=== PATIENT | female | born 1970 | race Caucasian/White ===

== ENCOUNTER 2016-04-13 08:00 | Inpatient (IN) | payer MEDICARE ==
[~2016-04-13] VITALS: Ht 160 cm; Wt 84.9 kg
[2016-04-13] VITALS (8 sets, daily range): BP systolic 105–146; BP diastolic 59–89; PULSE 50–73; RESP 16–24; TEMP 96.7–97.4; O2SAT 95–100
[~2016-04-13 08:00] MED LIST: BACT800T5 PO; IBUP200C PO; PYRI200T4 PO; Z.0.OXYGEN INH
--- NOTE | 2016-04-13 08:28 | PD ---
HPI Chief Complaint: Abdominal Pain Time Seen by Provider: 08:20 Travel History International Travel<30 days: No Contact w/Intl Traveler<30days: No Traveled to known affect area: No History of Present Illness HPI 45-year-old female came to the emergency room with history of severe epigastric and right upper quadrant pain that started this morning at 3 AM. She has been nauseous. She was at [facility] this morning but says that it took a long time so she left and came here. She has history of gallbladder stones and she thinks that's what it is this time. She looks very uncomfortable. No history of fever or chills. PFSH Past Medical History Narrative Medical List of her past medical history as reviewed from the nursing note. Cancer: Yes (PT STATES SHE HAD " BENIGN CANCER CELLS UTERUS" REFUSED CHEMO & RAD) Cardiovascular Problems: No Diabetes: No Endocrine: No Genitourinary: Yes (URINE INCONT) Hepatitis: No Hiatal Hernia: No Immune Disorder: No Musculoskeletal: Yes (LOW BACK ARTHRITIS AND SCOLIOSIS; SCIATIC NERVE LEFT PAIN ) Neurologic: Yes (HISTORY OF SEIZURES ) Psychiatric: Yes (ANXIETY, BIPOLAR, AND DEPRESSION) Respiratory: Yes (COPD) Thyroid Disease: No ?: Not Past Surgical History Abdominal Surgery: Yes (APPENDECTOMY AGE 22) AICD: No Body Medical Devices: NONE Cardiac Surgery: No Ear Surgery: No Endocrine Surgery: No Eye Surgery: No Genitourinary Surgery: No Gynecologic Surgery: Yes (PARTIAL HYSTERECTOMY 2009) Hysterectomy: Yes Joint Replacement: No Oral Surgery: No Pacemaker: No Thoracic Surgery: No Social History Tobacco Use: Yes Substance Use: Yes (ALCOHOL TEENAGER) Allergies-Medications (Allergen,Severity, Reaction): Coded Allergies: Apple (Verified Allergy, Intermediate, BLISTERS, 04/13/16) [place] (Verified Allergy, Intermediate, HIVES, 04/13/16) PT STATES SHE IS ALLERGIC TO ALL FRUIT Penicillin (Verified Allergy, Intermediate, SWELLING; HIVES, 04/13/16) Comments List of allergies reviewed from the nursing note. Reported Meds & Prescriptions Reported Meds & Active Scripts Active Narrative Medication List of her home medications reviewed from the nursing note. Review of Systems Except as stated in HPI: all other systems reviewed are Neg Physical Exam Narrative GENERAL: Awake, alert, moderate to significant distress SKIN: Warm and dry. HEAD: Atraumatic. Normocephalic. EYES: Pupils equal and round. No scleral icterus. No injection or drainage. ENT: No nasal bleeding or discharge. Mucous membranes pink and moist. NECK: Trachea midline. No JVD. CARDIOVASCULAR: Regular rate and rhythm. No murmur appreciated. RESPIRATORY: No accessory muscle use. Clear to auscultation. Breath sounds equal bilaterally. GASTROINTESTINAL: Abdomen soft, right upper quadrant tenderness, nondistended. Hepatic and splenic margins not palpable. MUSCULOSKELETAL: No obvious deformities. No clubbing. No cyanosis. No edema. NEUROLOGICAL: Awake and alert. No obvious cranial nerve deficits. Motor grossly within normal limits. Normal speech. PSYCHIATRIC: Appropriate mood and affect; insight and judgment normal. Data Data Last Documented VS Vital Signs Date Time Temp Pulse Resp B/P Pulse Ox O2 Delivery O2 Flow Rate FiO2 04/13/16 09:00 59 20 129/77 100 Room Air 04/13/16 08:03 97.4 Orders Complete Blood Count With Diff (04/13/16 08:30) Comprehensive Metabolic Panel (04/13/16 08:30) Lipase (04/13/16 08:30) Prothrombin Time / Inr (Pt) (04/13/16 08:30) Urinalysis - C+S If Indicated (04/13/16 08:30) Iv Access Insert/Monitor (04/13/16 08:30) Ecg Monitoring (04/13/16 08:30) Oximetry (04/13/16 08:30) Morphine Inj (Morphine Inj) (04/13/16 08:30) Ondansetron Inj (Zofran Inj) (04/13/16 08:30) Sodium Chloride 0.9% Flush (Ns Flush) (04/13/16 08:30) Ed Poc Ultrasound (04/13/16 08:30) Ondansetron Inj (Zofran Inj) (04/13/16 08:33) Us Abdomen Gallbladder (04/13/16 ) Morphine Inj (Morphine Inj) (04/13/16 10:30) Sodium Chlor 0.9% 1000 Ml Inj (Ns 1000 M (04/13/16 10:30) Aztreonam Inj (Azactam Inj) (04/13/16 10:30) Diet Npo (04/13/16 Lunch) Vital Signs (Adult) JURGEN.Q4H (04/13/16 10:32) Sodium Chlor 0.9% 1000 Ml Inj (Ns 1000 M (04/13/16 11:00) Acetaminophen (Tylenol) (04/13/16 10:45) Ciprofloxacin 400 Mg Premix (Cipro 400 M (04/13/16 12:00) Metronidazole 500 Mg Inj (Flagyl 500 Mg (04/13/16 13:00) Consult General Surgery (04/13/16 ) Consult Clara Nfs (04/13/16 ) Admit Order (Ed Use Only) (04/13/16 10:42) Labs Laboratory Tests Test 04/13/16 08:30 White Blood Count 10.0 TH/MM3 Red Blood Count 4.48 MIL/MM3 Hemoglobin 13.6 GM/DL Hematocrit 39.7 % Mean Corpuscular Volume 88.7 FL Mean Corpuscular Hemoglobin 30.3 PG Mean Corpuscular Hemoglobin 34.2 % Concent Red Cell Distribution Width 14.8 % Platelet Count 206 TH/MM3 Mean Platelet Volume 11.0 FL Neutrophils (%) (Auto) 72.1 % Lymphocytes (%) (Auto) 22.0 % Monocytes (%) (Auto) 4.4 % Eosinophils (%) (Auto) 1.1 % Basophils (%) (Auto) 0.4 % Neutrophils # (Auto) 7.2 TH/MM3 Lymphocytes # (Auto) 2.2 TH/MM3 Monocytes # (Auto) 0.4 TH/MM3 Eosinophils # (Auto) 0.1 TH/MM3 Basophils # (Auto) 0.0 TH/MM3 CBC Comment DIFF FINAL Differential Comment Prothrombin Time 10.7 SEC Prothromb Time International 1.0 RATIO Ratio Urine Color YELLOW Urine Turbidity CLEAR Urine pH 8.0 Urine Specific [place] 1.020 Urine Protein TRACE mg/dL Urine Glucose (UA) NEG mg/dL Urine Ketones NEG mg/dL Urine Occult Blood NEG Urine Nitrite NEG Urine Bilirubin NEG Urine Urobilinogen LESS THAN 2.0 MG/DL Urine Leukocyte Esterase SMALL Urine RBC 2 /hpf Urine WBC 2 /hpf Urine Squamous Epithelial 4 /hpf Cells Urine Bacteria RARE /hpf Urine Mucus FEW /lpf Microscopic Urinalysis Comment CULT NOT INDICATED Sodium Level 138 MEQ/L Potassium Level 4.0 MEQ/L Chloride Level 104 MEQ/L Carbon Dioxide Level 27.8 MEQ/L Anion Gap 6 MEQ/L Blood Urea Nitrogen 18 MG/DL Creatinine 0.86 MG/DL Estimat Glomerular Filtration 72 ML/MIN Rate Random Glucose 125 MG/DL Calcium Level 8.8 MG/DL Total Bilirubin 0.4 MG/DL Aspartate Amino Transf 9 U/L (AST/SGOT) Alanine Aminotransferase 18 U/L (ALT/SGPT) Alkaline Phosphatase 74 U/L Total Protein 7.7 GM/DL Albumin 3.8 GM/DL Lipase 88 U/L MDM Medical Decision Making Medical Screen Exam Complete: Yes Emergency Medical Condition: Yes Medical Record Reviewed: Yes Differential Diagnosis Acute cholecystitis, acute pancreatitis, biliary colic Narrative Course 10:45 AM blood test results were within normal limit. Based on my bedside ultrasound I ordered an official ultrasound which shows acute cholelithiasis with ultrasound Burgos's sign positive. I discussed the case with Dr. Sherman from general surgery who wants the patient to be admitted medically and he will consult. Patient is kept nothing by mouth and getting IV fluid. I ordered a dose of antibiotic for the acute cholecystitis. After let the patient know about the diagnosis and the admission and she is happy with the plan. I have given her adequate pain management. Procedures Procedure Narrative Emergency department right upper quadrant ultrasound was performed with patient consent. Curvilinear probe was used in the transverse and sagittal views within the right upper quadrant revealing gallbladder without obvious wall thickening, cholecystic fluid, but multiple gallstones and ultrasound Burgos's sign positive EKG Prior to Arrival: No Physician Communication Physician Communication Dr. Sherman Diagnosis Primary Impression: Acute cholecystitis Additional Impression: Cholelithiasis Qualified Code: K80.00 - Calculus of gallbladder with acute cholecystitis without obstruction Admitting Information Admitting Physician Requests: Admit Scripts Hydrocodone-Acetaminophen ([place])5-325 mg Tab1 Tab PO Q6H PRN (PAIN) #28 TAB Ref 0 Prov:Israel Sherman MD 04/14/16 Hydrocodone-Acetaminophen ([place])5-325 mg Tab1 Tab PO Q6H PRN (PAIN) #14 TAB Ref 0 Prov:Ger Tovar MD 04/14/16 Angeles Mcdonnell MD Apr 13, 2016 08:28
[2016-04-13] MEDS ORDERED: SODIUM CHLORIDE 0.9% FLUSH 5 ML FLUSH IVF PRN (08:30)
[2016-04-13] MEDS ORDERED: ONDANSETRON HCL 4 MG/2 ML VIAL IVP ONE (08:30)
[2016-04-13] MEDS ORDERED: MORPHINE SULFATE 4 MG/ML INJ IV PUSH ONE ×2 (08:30→10:30)
[2016-04-13] MEDS ORDERED: ONDANSETRON HCL 4 MG/2 ML VIAL ONE (08:33)
[2016-04-13 08:53] LABS: AUTOMATED NEUTROPHIL # 7.2 TH/MM3 (1.8-7.7); BASOPHIL % 0.4 % (0.0-2.0); EOSINOPHIL # 0.1 TH/MM3 (0-0.4); EOSINOPHIL % 1.1 % (0.0-4.0); HEMATOCRIT 39.7 % (35.0-46.0); HEMO FLAGS DIFF FINAL; LYMPHOCYTE # 2.2 TH/MM3 (1.0-4.8); MEAN CELL VOLUME 88.7 FL (80.0-100.0); MEAN CORPUSCULAR HEMOGLOBIN 30.3 PG (27.0-34.0); MEAN CORPUSCULAR HGB CONC 34.2 % (32.0-36.0); MONO % 4.4 % (0.0-8.0); NEUT % 72.1 % (16.0-70.0); PLATELET COUNT 206 TH/MM3 (150-450); RED BLOOD COUNT 4.48 MIL/MM3 (4.00-5.30); RED CELL DISTRIBUTION WIDTH 14.8 % (11.6-17.2)
[2016-04-13 09:02] LABS: PROTHROMBIN TIME - PATIENT 10.7 SEC (9.8-11.6)
[2016-04-13 09:05] LABS: BACTERIA, URINE RARE /hpf; BLOOD, URINE NEG (NEG); GLUCOSE,URINE NEG (NEG); KETONE, URINE NEG (NEG); MUCUS URINE FEW /lpf (OCC); NITRITE,URINE NEG (NEG); SQUAMOUS EPITHELIAL CELL URINE 4 /hpf (0-5); URINE COLOR YELLOW (YELLW/STRAW)
[2016-04-13 09:06] LABS: COMMENT (UR) CULT NOT INDICATED; CULTURE IF INDICATED CULT NOT INDICATED
[2016-04-13 09:07] LABS: ANION GAP 6 MEQ/L (5-15); AST (GOT) 9 U/L (15-37); BICARBONATE 27.8 MEQ/L (21.0-32.0); BLOOD UREA NITROGEN 18 MG/DL (7-18); CHLORIDE 104 MEQ/L (98-107); GLOMERULAR FILTRATION RATE 72 ML/MIN (>89); SODIUM (NA) 138 MEQ/L (136-145)
[2016-04-13 09:11] LABS: ALKALINE PHOSPHATASE 74 U/L (45-117); ALT (GPT) 18 U/L (10-53); TOTAL BILIRUBIN ADULT 0.4 MG/DL (0.2-1.0)
[2016-04-13] MEDS ORDERED: IBUP200C PO (09:29)
--- NOTE | 2016-04-13 10:14 | RADRPT ---
EXAM DATE/TIME: 04/13/2016 09:07 [place] COMPARISON: No previous studies available for comparison. INDICATIONS : Right upper quadrant pain. MEDICAL HISTORY : Chronic obstructive pulmonary disease. Gastroesophageal reflux disease. History of seizures. Upper and lower dentures. Low back arthristis and scoliosis. Left sciatic never pain. SURGICAL HISTORY : Appendectomy. Hysterectomy. ENCOUNTER: Initial ACUITY: > 1 year PAIN SCORE: 10/10 LOCATION: Right upper quadrant MEASUREMENTS: LIVER: 15.6 cm length COMMON DUCT: 6-7 mm RIGHT KIDNEY: 10.7 x 5.0 x 4.8 cm FINDINGS: LIVER: Normal echotexture without focal lesion or ductal dilatation. The portal system is patent. There is n o evidence of ascites. COMMON DUCT: No intraluminal mass or stone visualized. GALLBLADDER: Multiple echogenic stones are seen in the gallbladder. There is some very mild thickening of the gall bladder wall 3 mm. There is no fluid around the gallbladder. Patient appeared to have a positive Murp hy's sign. PANCREAS: The visualized portions are within normal limits. RIGHT KIDNEY: No evidence of hydronephrosis, stone, or mass. CONCLUSION: 1. Multiple gallstones in the gallbladder. There is some thickening of the gallbladder wall at 3 mm a nd a positive Burgos's sign. This can be seen with either acute or chronic cholecystitis. 2. No definite mechanical obstruction is seen. Questionable mild prominence of the common bile duct. Chris Hernandez MD on April 13, 2016 at 10:09 Board Certified Radiologist. This report was verified electronically.
[2016-04-13] MEDS ORDERED: AZTREONAM INJ 2,000 MG in SODIUM CHLORIDE 0.9% INJ 100 ML IV ONE (10:30)
[2016-04-13] MEDS ORDERED: SODIUM CHLOR 0.9% 1000 ML INJ 1,000 ML IV ONE (10:30)
[2016-04-13] MEDS ORDERED: ACETAMINOPHEN 325 MG TAB PO PRN (10:45)
[2016-04-13] MEDS ORDERED: ONDANSETRON HCL 4 MG/2 ML VIAL IV PUSH PRN (10:45)
--- NOTE | 2016-04-13 11:15 | HHI.HP ---
[facility] Service [facility] Primary Care Physician Tina Oliver Admission Diagnosis acute cholecystitis, cholelithiasis Diagnoses: (1) Acute cholecystitis Diagnosis: Principal (2) Cholelithiasis Diagnosis: Principal Chief Complaint: abdominal pain Travel History International Travel<30 Days: No Contact w/Intl Traveler <30 Da: No Traveled to Known Affected Are: No History of Present Illness patient is a 45 y/o female with history of COPD, who presented to ER with abdominal pain. she says that she woke up with the pain earlier this morning. pain was periumbilical with some radiation to the LUQ. pain was severe in intensity and was associated with nausea, vomiting and chills.she says that she' s had on and off abdominal pain but not that severe. Review of Systems Constitutional: COMPLAINS OF: Chills, DENIES: Fever, Weight loss, Night Sweats Eyes: DENIES: Blurred vision, Diplopia, Vision loss, Double Vision Ears, nose, mouth, throat: DENIES: Tinnitus, Vertigo, Throat pain, Epistaxis Respiratory: DENIES: Apneas, Cough, Snoring, Wheezing, Hemoptysis, Sputum production, Shortness of breath Cardiovascular: DENIES: Chest pain, Palpitations, Syncope, Dyspnea on Exertion , PND, Lower Extremity Edema, Orthopnea, Claudication Gastrointestinal: COMPLAINS OF: Abdominal pain, Nausea, Vomiting, DENIES: Black stools, Bloody stools, Constipation, Diarrhea, Difficulty Swallowing, Anorexia Genitourinary: DENIES: Urinary frequency, Urgency, Hematuria, Dysuria Musculoskeletal: DENIES: Joint pain, Muscle aches, Stiffness, Joint Swelling Integumentary: DENIES: Rash Neurologic: DENIES: Abnormal gait, Headache, Localized weakness, Paresthesias, Seizures, Speech Problems, Tremor, Poor Balance Psychiatric: DENIES: Anxiety, Confusion, Mood changes, Depression, Hallucinations, Agitation, Suicidal Ideation, Homicidal Ideation, Delusions Past Family Social History Past Medical History COPD Past Surgical History hysterectomy Reported Medications ibuprofen Allergies: Coded Allergies: Apple (Verified Allergy, Intermediate, BLISTERS, 04/13/16) [place] (Verified Allergy, Intermediate, HIVES, 04/13/16) PT STATES SHE IS ALLERGIC TO ALL FRUIT Penicillin (Verified Allergy, Intermediate, SWELLING; HIVES, 04/13/16) Active Ordered Medications Current Medications Morphine Sulfate (Morphine Inj) 4 mg ONCE ONCE IV PUSH Last administered on 08:36; Start 04/13/16 at 08:30; Stop 04/13/16 at 08:32; Status DC Ondansetron HCl (Zofran Inj) 4 mg ONCE ONCE IVP Last administered on 08:36; Start 04/13/16 at 08:30; Stop 04/13/16 at 08:32; Status DC IV Flush (NS Flush) 2 ml UNSCH PRN IVF FLUSH AFTER USING IV ACCESS; Start 04/13 at 08:30 Ondansetron HCl (Zofran Inj) 4 mg STK-MED ONCE .ROUTE ; Start 04/13/16 at 08:33 ; Stop 04/13/16 at 08:34; Status DC Morphine Sulfate 4 mg 4 mg ONCE ONCE IV PUSH Last administered on 04/13/16 10 :35; Start 04/13/16 at 10:30; Stop 04/13/16 at 10:31; Status DC Sodium Chloride 1,000 ml @ 999 mls/hr BOLUS ONCE IV Last administered on 04/13 10:34; Start 04/13/16 at 10:30; Stop 04/13/16 at 11:30 Aztreonam 2000 mg/ Sodium Chloride 100 ml @ 200 mls/hr ONCE ONCE IV Last administered on 04/13/16 11:06; Start 04/13/16 at 10:30; Stop 04/13/16 at 10:59 ; Status DC Sodium Chloride (NS 1000 ml Inj) 1,000 ml @ 100 mls/hr Q10H IV ; Start at 11:00 Ondansetron HCl (Zofran Inj) 4 mg Q8HR PRN IV PUSH NAUSEA; Start 04/13/16 at 10 :45; Status Cancel Acetaminophen 650 mg 650 mg Q4H PRN PO FEVER; Start 04/13/16 at 10:45 Ciprofloxacin/ Dextrose 200 ml @ 200 mls/hr Q12H IV ; Start 04/13/16 at 12:00 Metronidazole (Flagyl 500 Mg Inj) 100 ml @ 100 mls/hr Q8H IV ; Start 04/13/16 at 13:00 Ondansetron HCl (Zofran Inj) 4 mg Q8HR PRN IV PUSH NAUSEA; Start 04/13/16 at 11 :00 Social History smokes but doesn't drink. Physical Exam Vital Signs Vital Signs Date Time Temp Pulse Resp B/P Pulse Ox O2 Delivery O2 Flow Rate FiO2 04/13/16 09:00 59 20 129/77 100 Room Air 04/13/16 08:49 20 99 Room Air 04/13/16 08:03 97.4 50 24 146/70 99 Room Air Physical Exam GENERAL: This is a well-nourished, well-developed patient, in no apparent distress. SKIN: No rashes, ecchymoses or lesions. Cool and dry. HEAD: Atraumatic. Normocephalic. No temporal or scalp tenderness. EYES: Pupils equal round and reactive. Extraocular motions intact. No scleral icterus. No injection or drainage. ENT: Nose without bleeding, purulent drainage or septal hematoma. Throat without erythema, tonsillar hypertrophy or exudate. Uvula midline. Airway patent. NECK: Trachea midline. No JVD or lymphadenopathy. Supple, nontender, no meningeal signs. CARDIOVASCULAR: Regular rate and rhythm without murmurs, gallops, or rubs. RESPIRATORY: Clear to auscultation. Breath sounds equal bilaterally. No wheezes , rales, or rhonchi. GASTROINTESTINAL: Abdomen soft, generalized tenderness, nondistended. No hepato- splenomegaly, or palpable masses. No guarding. MUSCULOSKELETAL: Extremities without clubbing, cyanosis, or edema. No joint tenderness, effusion, or edema noted. No calf tenderness. Negative Homans sign bilaterally. NEUROLOGICAL: Awake and alert. Cranial nerves II through XII intact. Motor and sensory grossly within normal limits. Five out of 5 muscle strength in all muscle groups. Normal speech. Laboratory Laboratory Tests Test 04/13/16 08:30 White Blood Count 10.0 Red Blood Count 4.48 Hemoglobin 13.6 Hematocrit 39.7 Mean Corpuscular Volume 88.7 Mean Corpuscular Hemoglobin 30.3 Mean Corpuscular Hemoglobin 34.2 Concent Red Cell Distribution Width 14.8 Platelet Count 206 Mean Platelet Volume 11.0 Neutrophils (%) (Auto) 72.1 Lymphocytes (%) (Auto) 22.0 Monocytes (%) (Auto) 4.4 Eosinophils (%) (Auto) 1.1 Basophils (%) (Auto) 0.4 Neutrophils # (Auto) 7.2 Lymphocytes # (Auto) 2.2 Monocytes # (Auto) 0.4 Eosinophils # (Auto) 0.1 Basophils # (Auto) 0.0 CBC Comment DIFF FINAL Differential Comment Prothrombin Time 10.7 Prothromb Time International 1.0 Ratio Urine Color YELLOW Urine Turbidity CLEAR Urine pH 8.0 Urine Specific [place] 1.020 Urine Protein TRACE Urine Glucose (UA) NEG Urine Ketones NEG Urine Occult Blood NEG Urine Nitrite NEG Urine Bilirubin NEG Urine Urobilinogen LESS THAN 2.0 Urine Leukocyte Esterase SMALL Urine RBC 2 Urine WBC 2 Urine Squamous Epithelial 4 Cells Urine Bacteria RARE Urine Mucus FEW Microscopic Urinalysis Comment CULT NOT INDICATED Sodium Level 138 Potassium Level 4.0 Chloride Level 104 Carbon Dioxide Level 27.8 Anion Gap 6 Blood Urea Nitrogen 18 Creatinine 0.86 Estimat Glomerular Filtration 72 Rate Random Glucose 125 Calcium Level 8.8 Total Bilirubin 0.4 Aspartate Amino Transf 9 (AST/SGOT) Alanine Aminotransferase 18 (ALT/SGPT) Alkaline Phosphatase 74 Total Protein 7.7 Albumin 3.8 Lipase 88 Result Diagram: 04/13/16 0830 04/13/16 0830 Imaging Last Impressions Gall Bladder Ultrasound 04/13/16 0000 Signed Impressions: Service Date/Time: Wednesday, April 13, 2016 09:07 - CONCLUSION: 1. Multiple gallstones in the gallbladder. There is some thickening of the gallbladder wall at 3 mm and a positive Burgos's sign. This can be seen with either acute or chronic cholecystitis. 2. No definite mechanical obstruction is seen. Questionable mild prominence of the common bile duct. Chris Hernandez MD Assessment and Plan Assessment and Plan A/P - acute cholecystitis/ cholelithiasis keep NPO- start IV fluid- pain control and antiemetics as needed start IV antibiotics- surgery consulted -COPD- neb treatment as needed Discussed Condition With ER physician and the patient. Physician Certification 2 Midnight Certification Type: Admission for Inpatient Services Order for Inpatient Services The services are ordered in accordance with Medicare regulations or non- Medicare payer requirements, as applicable. In the case of services not specified as inpatient-only, they are appropriately provided as inpatient services in accordance with the 2-midnight benchmark. Estimated LOS (days): 2 days is the estimated time the patient will need to remain in the hospital, assuming treatment plan goals are met and no additional complications. Post-Hospital Plan: Home Problem Qualifiers (1) Cholelithiasis: Qualified Code: K80.00 - Calculus of gallbladder with acute cholecystitis without obstruction Ger Tovar MD Apr 13, 2016 11:15
[2016-04-13] MEDS: SODIUM CHLOR 0.9% 1000 ML INJ 1,000 ML IV SCH ×2 (11:49→23:16)
[2016-04-13] MEDS: CIPROFLOXACIN 400 MG PREMIX 200 ML IV SCH ×2 (11:49→23:15)
[2016-04-13] MEDS: metroNIDAZOLE 500 MG INJ 100 ML IV SCH ×2 (11:50→21:39)
[2016-04-13] MEDS: ONDANSETRON HCL 4 MG/2 ML VIAL IV PUSH PRN ×2 (12:45→23:13)
[2016-04-13] MEDS: HYDROmorphone HCL PF 1 MG/ML VIAL IV PUSH PRN (16:57)
[2016-04-14] VITALS: BP 101/65; PULSE 67; RESP 19; TEMP 97.2; O2SAT 98
[2016-04-14 04:00] VITALS: BP 102/64; PULSE 69; RESP 18; TEMP 97.5; O2SAT 96
[2016-04-14] MEDS: metroNIDAZOLE 500 MG INJ 100 ML IV SCH ×3 (04:23→20:20)
[2016-04-14] MEDS: SODIUM CHLOR 0.9% 1000 ML INJ 1,000 ML IV SCH ×3 (07:00→23:54)
--- NOTE | 2016-04-14 07:50 | MB ---
cc: ARMANDO SHERMAN M.D. DATE OF CONSULTATION 04/13/2016 REASON FOR CONSULTATION Gallstones. HISTORY This is a 45-year-old female who had a few days' history of severe right upper quadrant pain. She went to [facility] but it took too long so she wanted to come to [place] to see if they can take care of her. The ER physician worked throughout and imaging studies showed gallstones and inflamed gallbladder. I was asked to participate in the care of this lady. PAST MEDICAL HISTORY Negative for any chronic medical problems. She has had a few urinary tract infections but no cardiac or pulmonary issues. REVIEW OF SYSTEMS Her main complaint is right upper quadrant pain extending into her back with nausea and vomiting. ALLERGIES APPLES. ORANGES. PENICILLIN. PHYSICAL EXAMINATION GENERAL: On physical exam she is sitting in bed. She points to her right upper quadrant where she hurts. NECK: Supple. CHEST: clear. HEART: Regular rate. ABDOMEN: Slightly obese, soft with tenderness in the right upper quadrant. No umbilical hernia. No masses are appreciated. EXTREMITIES: No clubbing, cyanosis or edema. NEUROLOGIC: She is alert, oriented, somewhat frustrated with her medical condition. LABORATORY DATA White count of 10, H&H of 13 and 39. Coags normal. LFTs normal. BMP is normal. Urinalysis clear. IMAGING STUDIES Ultrasound of the abdomen shows multiple gallstones, thickening of the gallbladder and the radiologist felt that she had a Burgos's sign as well. ASSESSMENT A 45-year-old female with signs and symptomatology consistent with biliary colic. PLAN Laparoscopic cholecystectomy tomorrow when we have some time in the operating room. This was explained to the patient in detail and she appeared to understand. I will have her sign a consent form. Armando Sherman MD JDB/SSB /11:11 PM /7:44 AM
[2016-04-14 08:00] VITALS: BP 82/59; PULSE 72; RESP 20; TEMP 96.4; O2SAT 98
[2016-04-14] MEDS ORDERED: NORC5TAB PO ×2 (08:44→13:44)
--- NOTE | 2016-04-14 08:44 | HHI.PR ---
Subjective Remarks looks more comfortable today. abdominal pain is better. has some nausea but no emesis. afebrile. Objective Vitals Vital Signs Date Time Temp Pulse Resp B/P Pulse Ox O2 Delivery O2 Flow Rate FiO2 04/14/16 04:00 97.5 69 18 102/64 96 04/14/16 00:00 97.2 67 19 101/65 98 04/13/16 20:00 96.9 73 18 105/68 98 04/13/16 17:42 16 04/13/16 15:50 96.7 58 16 133/88 97 04/13/16 12:40 97.3 59 20 134/89 96 04/13/16 12:00 64 18 120/79 95 Room Air 04/13/16 11:00 60 17 127/59 95 Room Air 04/13/16 09:00 59 20 129/77 100 Room Air 04/13/16 08:49 20 99 Room Air I/O 04/13/16 04/13/16 04/13/16 04/14/16 04/14/16 04/14/16 07:00 15:00 23:00 07:00 15:00 23:00 Intake Total 792 ml 1236 ml Output Total 400 ml Balance 792 ml 836 ml Intake Oral 0 ml 0 ml IV Total 792 ml 1236 ml Output Urine Total 400 ml # Voids 1 # Bowel Movements 0 Result Diagram: 04/13/16 0830 04/13/16 0830 Imaging Last Impressions Gall Bladder Ultrasound 04/13/16 0000 Signed Impressions: Service Date/Time: Wednesday, April 13, 2016 09:07 - CONCLUSION: 1. Multiple gallstones in the gallbladder. There is some thickening of the gallbladder wall at 3 mm and a positive Burgos's sign. This can be seen with either acute or chronic cholecystitis. 2. No definite mechanical obstruction is seen. Questionable mild prominence of the common bile duct. Chris Hernandez MD Objective Remarks GENERAL: This is a well-nourished, well-developed patient, in no apparent distress. CARDIOVASCULAR: Regular rate and regular rhythm without murmurs, gallops, or rubs. RESPIRATORY: Clear to auscultation. Breath sounds equal bilaterally. No wheezes , rales, or rhonchi. GASTROINTESTINAL: Abdomen soft, non-tender, nondistended. Normal, active bowel sounds MUSCULOSKELETAL: Extremities without clubbing, cyanosis, or edema. NEURO: Alert & Oriented x4 to person, place, time, situation. Moves all ext x4 Procedures none Medications and IVs Current Medications Morphine Sulfate (Morphine Inj) 4 mg ONCE ONCE IV PUSH Last administered on 08:36; Start 04/13/16 at 08:30; Stop 04/13/16 at 08:32; Status DC Ondansetron HCl (Zofran Inj) 4 mg ONCE ONCE IVP Last administered on 08:36; Start 04/13/16 at 08:30; Stop 04/13/16 at 08:32; Status DC IV Flush (NS Flush) 2 ml UNSCH PRN IVF FLUSH AFTER USING IV ACCESS; Start 04/13 at 08:30 Ondansetron HCl (Zofran Inj) 4 mg STK-MED ONCE .ROUTE ; Start 04/13/16 at 08:33 ; Stop 04/13/16 at 08:34; Status DC Morphine Sulfate 4 mg 4 mg ONCE ONCE IV PUSH Last administered on 04/13/16 10 :35; Start 04/13/16 at 10:30; Stop 04/13/16 at 10:31; Status DC Sodium Chloride 1,000 ml @ 999 mls/hr BOLUS ONCE IV Last administered on 04/13 10:34; Start 04/13/16 at 10:30; Stop 04/13/16 at 11:30; Status DC Aztreonam 2000 mg/ Sodium Chloride 100 ml @ 200 mls/hr ONCE ONCE IV Last administered on 04/13/16 11:06; Start 04/13/16 at 10:30; Stop 04/13/16 at 10:59 ; Status DC Sodium Chloride (NS 1000 ml Inj) 1,000 ml @ 100 mls/hr Q10H IV Last administered on 04/13/16 23:16; Start 04/13/16 at 11:00 Ondansetron HCl (Zofran Inj) 4 mg Q8HR PRN IV PUSH NAUSEA; Start 04/13/16 at 10 :45; Status Cancel Acetaminophen 650 mg 650 mg Q4H PRN PO FEVER; Start 04/13/16 at 10:45 Ciprofloxacin/ Dextrose 200 ml @ 200 mls/hr Q12H IV Last administered on 23:15; Start 04/13/16 at 12:00 Metronidazole (Flagyl 500 Mg Inj) 100 ml @ 100 mls/hr Q8H IV Last administered on 04/14/16 04:23; Start 04/13/16 at 13:00 Ondansetron HCl (Zofran Inj) 4 mg Q8HR PRN IV PUSH NAUSEA Last administered on 04/13/16 23:13; Start 04/13/16 at 11:00 Hydromorphone HCl (Dilaudid Pf Inj) 1 mg Q4H PRN IV PUSH PAIN > 5 Last administered on 04/13/16 16:57; Start 04/13/16 at 11:15 A/P Assessment and Plan - acute cholecystitis/ cholelithiasis keep NPO- started IV fluid- pain control and antiemetics as needed continue IV antibiotics- surgery consulted and plan for cholecystectomy today. -COPD- neb treatment as needed Discharge Planning when cleared by surgery. Ger Tovar MD Apr 14, 2016 08:44
[2016-04-14] MEDS ORDERED: RESP: ALBUTEROL 2.5 MG/IPRATROPIUM 0.5 MG NEB (PRN) NEB (08:45)
[2016-04-14 11:16] VITALS: BP 102/73; PULSE 62; RESP 18; TEMP 97.2; O2SAT 98
[2016-04-14] MEDS ORDERED: MIDAZOLAM HCL 2 MG/2 ML VIAL ONE (11:44)
[2016-04-14] MEDS ORDERED: DEXAMETHASONE SOD PHOS 4 MG/ML VIAL ONE (11:44)
[2016-04-14] MEDS: CIPROFLOXACIN 400 MG PREMIX 200 ML IV SCH ×2 (11:50→23:49)
[2016-04-14] MEDS ORDERED: LACTATED RINGER'S 1000 ML INJ 2,000 ML IV ONE (12:00)
[2016-04-14] MEDS ORDERED: NEOSTIGMINE 3 MG/3 ML SYR IV ONE (12:00)
[2016-04-14] MEDS ORDERED: PROPOFOL 200 MG/20 ML AMP IV ONE (12:00)
[2016-04-14] MEDS ORDERED: ONDANSETRON HCL 4 MG/2 ML VIAL IV PUSH ONE (12:00)
[2016-04-14] MEDS ORDERED: BUPIVACAINE/EPINEPHRINE 0.25% PF 30 ML VIAL INFIL ONE (13:02)
--- NOTE | 2016-04-14 13:42 | HHI.PR ---
cc: Israel Sherman MD Immediate Post Op Note Procedure Date: Apr 14, 2016 Pre Op Diagnosis: (1) Acute cholecystitis (2) Cholelithiasis Post Op Diagnosis: (1) Acute cholecystitis (2) Cholelithiasis Surgeon: Israel Sherman Dual Rate Dealer(s): Please refer to the record Procedure: Laparoscopic cholecystectomy Findings: Fairly inflamed gallbladder Complications: None Specimen(s) removed: Gallbladder Estimated blood loss: Minimum Anesthesia: General Drains: None IVF Patient to: PACU Patient Condition: Good Implant/Devices: SEE IMPLANT LOG (if applicable) Date/Time of Procedure: SEE SURGICAL CARE RECORD Israel Sherman MD Apr 14, 2016 13:42
[2016-04-14] MEDS ORDERED: *morphine SULFATE 8 MG/ML PERIprocedure ONLY ONE (14:13)
[2016-04-14] MEDS ORDERED: fentaNYL CITRATE 250 MCG/5 ML AMP ONE (14:16)
[2016-04-14] MEDS ORDERED: DO NOT ADM ANY ANTICOAGULANT DRUGS XX PRN (14:30)
[2016-04-14] MEDS: ONDANSETRON HCL 4 MG/2 ML VIAL IV PUSH PRN (14:59)
[2016-04-14 16:00] VITALS: BP 104/69; PULSE 68; RESP 20; TEMP 97.5; O2SAT 98
[2016-04-14 20:00] VITALS: BP 118/68; PULSE 64; RESP 15; TEMP 97.9; O2SAT 97
[2016-04-14] MEDS: HYDROmorphone HCL PF 1 MG/ML VIAL IV PUSH PRN (20:19)
[2016-04-15] VITALS: BP 92/59; PULSE 55; RESP 15; TEMP 97.5; O2SAT 99
[2016-04-15 03:00] VITALS: BP 109/71; PULSE 59; RESP 16; TEMP 97.6; O2SAT 98
[2016-04-15] MEDS: ONDANSETRON HCL 4 MG/2 ML VIAL IV PUSH PRN (04:00)
[2016-04-15] MEDS: HYDROmorphone HCL PF 1 MG/ML VIAL IV PUSH PRN ×2 (04:01→08:14)
[2016-04-15] MEDS: metroNIDAZOLE 500 MG INJ 100 ML IV SCH (04:01)
[2016-04-15 08:00] VITALS: BP 113/69; PULSE 66; RESP 16; TEMP 97.2; O2SAT 99
[2016-04-15 08:38] VITALS: O2SAT 94
--- NOTE | 2016-04-15 08:52 | HHI.PR ---
Subjective Remarks resting comfortably with no distress. minimal to mild abdominal pain. no nausea or vomiting. no fever. wants to go home. d/w the RN. Objective Vitals Vital Signs Date Time Temp Pulse Resp B/P Pulse Ox O2 Delivery O2 Flow Rate FiO2 04/15/16 08:38 94 21 04/15/16 03:00 97.6 59 16 109/71 98 04/15/16 00:00 97.5 55 15 92/59 99 04/14/16 20:00 97.9 64 15 118/68 97 04/14/16 16:00 97.5 68 20 104/69 98 04/14/16 14:45 98.5 57 16 124/77 95 Room Air 04/14/16 14:30 69 12 112/70 95 04/14/16 14:15 60 14 133/80 98 Nasal Cannula 2 04/14/16 14:09 98.7 66 6 122/83 93 Nasal Cannula 3 04/14/16 11:16 97.2 62 18 102/73 98 I/O 04/14/16 04/14/16 04/14/16 04/15/16 04/15/16 04/15/16 07:00 15:00 23:00 07:00 15:00 23:00 Intake Total 1236 ml 1000 ml 1198 ml 1339 ml Output Total 400 ml 5 ml 1800 ml Balance 836 ml 995 ml 1198 ml -461 ml Intake Oral 0 ml 0 ml 480 ml 240 ml IV Total 1236 ml 718 ml 1099 ml Other 1000 ml Output Urine Total 400 ml 1800 ml Estimated Blood Loss 5 ml # Voids 1 4 # Bowel Movements 0 Result Diagram: 04/13/16 0830 04/13/16 0830 Imaging Last Impressions Gall Bladder Ultrasound 04/13/16 0000 Signed Impressions: Service Date/Time: Wednesday, April 13, 2016 09:07 - CONCLUSION: 1. Multiple gallstones in the gallbladder. There is some thickening of the gallbladder wall at 3 mm and a positive Burgos's sign. This can be seen with either acute or chronic cholecystitis. 2. No definite mechanical obstruction is seen. Questionable mild prominence of the common bile duct. Chris Hernandez MD Objective Remarks GENERAL: This is a well-nourished, well-developed patient, in no apparent distress. CARDIOVASCULAR: Regular rate and regular rhythm without murmurs, gallops, or rubs. RESPIRATORY: Clear to auscultation. Breath sounds equal bilaterally. No wheezes , rales, or rhonchi. GASTROINTESTINAL: Abdomen soft, non-tender, nondistended. Normal, active bowel sounds MUSCULOSKELETAL: Extremities without clubbing, cyanosis, or edema. NEURO: Alert & Oriented x4 to person, place, time, situation. Moves all ext x4 Procedures laparoscopic cholecystectomy Medications and IVs Current Medications Morphine Sulfate (Morphine Inj) 4 mg ONCE ONCE IV PUSH Last administered on 08:36; Start 04/13/16 at 08:30; Stop 04/13/16 at 08:32; Status DC Ondansetron HCl (Zofran Inj) 4 mg ONCE ONCE IVP Last administered on 08:36; Start 04/13/16 at 08:30; Stop 04/13/16 at 08:32; Status DC IV Flush (NS Flush) 2 ml UNSCH PRN IVF FLUSH AFTER USING IV ACCESS; Start 04/13 at 08:30 Ondansetron HCl (Zofran Inj) 4 mg STK-MED ONCE .ROUTE ; Start 04/13/16 at 08:33 ; Stop 04/13/16 at 08:34; Status DC Morphine Sulfate 4 mg 4 mg ONCE ONCE IV PUSH Last administered on 04/13/16 10 :35; Start 04/13/16 at 10:30; Stop 04/13/16 at 10:31; Status DC Sodium Chloride 1,000 ml @ 999 mls/hr BOLUS ONCE IV Last administered on 04/13 10:34; Start 04/13/16 at 10:30; Stop 04/13/16 at 11:30; Status DC Aztreonam 2000 mg/ Sodium Chloride 100 ml @ 200 mls/hr ONCE ONCE IV Last administered on 04/13/16 11:06; Start 04/13/16 at 10:30; Stop 04/13/16 at 10:59 ; Status DC Sodium Chloride (NS 1000 ml Inj) 1,000 ml @ 100 mls/hr Q10H IV Last administered on 04/14/16 23:54; Start 04/13/16 at 11:00 Ondansetron HCl (Zofran Inj) 4 mg Q8HR PRN IV PUSH NAUSEA; Start 04/13/16 at 10 :45; Status Cancel Acetaminophen 650 mg 650 mg Q4H PRN PO FEVER; Start 04/13/16 at 10:45 Ciprofloxacin/ Dextrose 200 ml @ 200 mls/hr Q12H IV Last administered on 23:49; Start 04/13/16 at 12:00 Metronidazole (Flagyl 500 Mg Inj) 100 ml @ 100 mls/hr Q8H IV Last administered on 04/15/16 04:01; Start 04/13/16 at 13:00 Ondansetron HCl (Zofran Inj) 4 mg Q8HR PRN IV PUSH NAUSEA Last administered on 04/15/16 04:00; Start 04/13/16 at 11:00 Hydromorphone HCl (Dilaudid Pf Inj) 1 mg Q4H PRN IV PUSH PAIN > 5 Last administered on 04/15/16 08:14; Start 04/13/16 at 11:15 Albuterol/ Ipratropium (Duoneb Neb) 1 ampule Q6HR NEB PRN NEB SHORTNESS OF BREATH; Start 04/14/16 at 08:45 Midazolam HCl (Versed Inj) 2 mg STK-MED ONCE .ROUTE ; Start 04/14/16 at 11:44; Stop 04/14/16 at 11:45; Status DC Dexamethasone Sodium Phosphate (Decadron Inj) 4 mg STK-MED ONCE .ROUTE ; Start 04/14/16 at 11:44; Stop 04/14/16 at 11:45; Status DC Bupivacaine HCl/ Epinephrine Bitart (Marcaine-Epi Pf 0.25% Inj) 30 ml STK-MED ONCE INFIL Last administered on 04/14/16 13:02; Start 04/14/16 at 13:02; Stop 04/14/16 at 13:29; Status DC Morphine Sulfate (*morphine INJ PERIprocedure ONLY) 8 mg STK-MED ONCE .ROUTE Last administered on 04/14/16 14:14; Start 04/14/16 at 14:13; Stop 04/14/16 at 14:14; Status DC Fentanyl Citrate (fentaNYL INJ) 250 mcg STK-MED ONCE .ROUTE ; Start 04/14/16 at 14:16; Stop 04/14/16 at 14:17; Status DC Miscellaneous Information ALL NURSING DEPARTME... UNSCH PRN XX SEE LABEL COMMENTS; Start 04/14/16 at 14:30; Stop 04/15/16 at 14:29 A/P Assessment and Plan - acute cholecystitis/ cholelithiasis s/p cholecystectomy cleared by surgery for discharge. continue pain control -COPD- neb treatment as needed Discharge Planning dc home today with f/u with pcp and surgery. see med list. d/w the patient and RN. Ger Tovar MD Apr 15, 2016 08:52
--- NOTE | 2016-04-15 08:53 | HHI.DCPOC ---
Discharge Care Plan Diagnosis: (1) Cholelithiasis (2) Acute cholecystitis Additional Problems abdominal pain. Goals to Promote Your Health * To prevent worsening of your condition and complications * To maintain your health at the optimal level Directions to Meet Your Goals Take your medications as prescribed Follow your dietary instruction Follow activity as directed Keep your appointments as scheduled Take your immunizations and boosters as scheduled If your symptoms worsen call your PCP, if no PCP go to Urgent Care Center or Emergency Room Smoking is Dangerous to Your Health. Avoid second hand smoke Call the 24-hour hour crisis hotline for domestic abuse at Ger Tovar MD Apr 15, 2016 08:52
--- NOTE | 2016-04-15 08:54 | HHI.DS ---
Discharge Summary Admission Date Apr 13, 2016 at 10:47 Discharge Date: Apr 15, 2016 Admitting Diagnosis acute cholecystitis, cholelithiasis (1) Acute cholecystitis ICD Code: K81.0 Diagnosis: Principal (2) Cholelithiasis ICD Code: K80.20 Diagnosis: Principal Procedures laparoscopic cholecystectomy Brief History - From Admission patient is a 45 y/o female with history of COPD, who presented to ER with abdominal pain. she says that she woke up with the pain earlier this morning. pain was periumbilical with some radiation to the LUQ. pain was severe in intensity and was associated with nausea, vomiting and chills.she says that she' s had on and off abdominal pain but not that severe. CBC/BMP: 04/13/16 0830 04/13/16 0830 Significant Findings Laboratory Tests Test 04/13/16 08:30 Neutrophils (%) (Auto) 72.1 % (16.0-70.0) Urine Leukocyte Esterase SMALL (NEG) Urine Bacteria RARE /hpf (NONE) Urine Mucus FEW /lpf (OCC) Estimat Glomerular Filtration 72 ML/MIN (>89) Rate Random Glucose 125 MG/DL (74-106) Aspartate Amino Transf 9 U/L (15-37) (AST/SGOT) Imaging Last Impressions Gall Bladder Ultrasound 04/13/16 0000 Signed Impressions: Service Date/Time: Wednesday, April 13, 2016 09:07 - CONCLUSION: 1. Multiple gallstones in the gallbladder. There is some thickening of the gallbladder wall at 3 mm and a positive Burgos's sign. This can be seen with either acute or chronic cholecystitis. 2. No definite mechanical obstruction is seen. Questionable mild prominence of the common bile duct. Chris Hernandez MD PE at Discharge GENERAL: This is a well-nourished, well-developed patient, in no apparent distress. CARDIOVASCULAR: Regular rate and regular rhythm without murmurs, gallops, or rubs. RESPIRATORY: Clear to auscultation. Breath sounds equal bilaterally. No wheezes , rales, or rhonchi. GASTROINTESTINAL: Abdomen soft, non-tender, nondistended. Normal, active bowel sounds MUSCULOSKELETAL: Extremities without clubbing, cyanosis, or edema. NEURO: Alert & Oriented x4 to person, place, time, situation. Moves all ext x4 Hospital Course - acute cholecystitis/ cholelithiasis s/p cholecystectomy cleared by surgery for discharge. continue pain control Pt Condition on Discharge: Good Discharge Disposition: Discharge Home Discharge Time: <= 30 minutes Discharge Instructions DIET: Follow Instructions for: Heart Healthy Diet Additional Diet Instructions: low fat. Activities you can perform: Regular-No Restrictions Other Activity Instructions: avoid heavy lifting. Follow up Referrals: PCP Follow-up - 1 Week Surgical - 10 Days with Israel Sherman MD New Medications: Hydrocodone-Acetaminophen ([place]) 5-325 mg Tab 1 TAB PO Q6H PRN PAIN #14 Ref 0 TAB Hydrocodone-Acetaminophen ([place]) 5-325 mg Tab 1 TAB PO Q6H PRN PAIN #28 Ref 0 TAB Discontinued Medications: Ibuprofen (Ibuprofen) 200 Mg Cap 200 MG PO Q4H PRN PAIN SCALE 1 TO 5 Ref 0 CAP Ger Tovar MD Apr 15, 2016 08:54
--- NOTE | 2016-04-15 10:41 | HHI.PR ---
Subjective Subjective Notes DAILY PROGRESS NOTE FOR SURGICAL ATTENDING, DR. ARMANDO SHERMAN Resting in bed Eager to get home Objective Vitals/I&O Vital Signs Date Time Temp Pulse Resp B/P Pulse Ox O2 Delivery O2 Flow Rate FiO2 04/15/16 08:38 94 21 04/15/16 08:00 97.2 66 16 113/69 04/14/16 14:45 Room Air 04/14/16 14:15 2 Cardiovascular: Regular Lungs: Clear Abdomen: Non-distended, Other (tender at incisions sites; incision sites c/d/i ) Extremities: No edema A/P Problem List: (1) S/P laparoscopic cholecystectomy (2) Acute cholecystitis (3) Cholelithiasis Assessment and Plan 45 year old female POD1 lap olivia -Tolerating regular diet -Pain controlled -Okay to DC from standpoint -Follow up with Dr. Sherman in 7-10 days Problem Qualifiers (1) Cholelithiasis: Qualified Code: K80.00 - Calculus of gallbladder with acute cholecystitis without obstruction Luisa Collins Apr 15, 2016 10:41 Armando Sherman MD Apr 15, 2016 13:29
--- NOTE | 2016-04-17 17:51 | MP ---
cc: ARMANDO SHERMAN DATE OF SURGERY: 04/14/2016 PREOPERATIVE DIAGNOSIS: Acute cholecystitis POSTOPERATIVE DIAGNOSIS Acute cholecystitis, cholelithiasis. PROCEDURE Laparoscopic cholecystectomy ANESTHESIA General SURGEON Dr. Sherman. HISTORY OF PRESENT ILLNESS: The patient is a pleasant 45-year-old female who came to the emergency room was admitted to the medicine service. She had all signs and symptoms consistent with biliary colic on clinical exam and imaging. Plans were made for above. PROCEDURE The patient was taken to the operating room and placed in operating room table after endotracheal anesthesia her abdomen is prepped with Betadine solution make incision below the umbilicus. Veress needle inserted, saline load test along the abdomen is insufflated 15 mmHg. 10 mm trocar was introduced. Cameras introduced through the working ports placed 5 mm below the xyphoid 5 mm between two previous placed ports. Gallbladder can be seen is obviously edematous and inflamed. We are able to grasp it superiorly and laterally identifying the cystic duct which is very small doubly ligated and transected. Cystic artery is very small or nonexistent and it is sealed with electrocautery device. We then dissect off the liver edge and pulled the gallbladder out to the umbilical incision which must be elongated because the size of the gallbladder. I then check our dissection site is as apex and biliary her excellent hemostasis without biliary leakage liver smooth, peritoneal surfaces smooth. No other gross abnormalities seen. We then irrigate with about 1500 cc of saline irrigant this is all removed. The trocars were removed. CO2 is removed, the fascial layers closed with horizontal fashion with 2-0 Vicryl and skin is closed with 4-0 Vicryl. Steri-Strips lesser bandage applied. The patient did well and no immediate postop complications. MD JEREMY Mustafa/royal /1:42 PM /5:48 PM
== END 2016-04-15 11:35 | disposition home or self-care (01) | DRG 419 ==
LOC: NEPC 08:00 → NEDA 10:47 → HOCB 12:25
PROVIDERS: ADMIT Internal Medicine; ATTEND Internal Medicine
PROC: 0FT44ZZ Resection of Gallbladder, Percutaneous Endoscopic Approach (ICD-10-PCS; principal; 2016-04-14 12:32)
DX: K80.12 Calculus of gallbladder with acute and chronic cholecystitis without obstruction (principal); J44.9 Chronic obstructive pulmonary disease, unspecified; Z72.0 Tobacco use; M41.9 Scoliosis, unspecified; M46.90 Unspecified inflammatory spondylopathy, site unspecified
CPT/HCPCS: 76705; 76937; 80053; 81001; 83690; 85025; 85610; 88304; 96374; 96375; 96376; J0744; J1100; J1170; J2250; J2270; J2405; J2710; J3010; J7030; J7120